=== PATIENT | female | born 1995 | race Caucasian/White ===

== ENCOUNTER 2019-11-23 12:08 | Emergency (ER) | payer BC, OTHER ==
[~2019-11-23 12:08] MED LIST: LITH300C PO
[2019-11-23] MEDS ORDERED: HYDR1TAB94 PO (13:53)
[2019-11-23] MEDS ORDERED: AMOCLA875 PO (13:53)
== END 2019-11-23 14:04 | disposition home or self-care (01) ==
LOC: ER 12:08
DX: S61.051A Open bite of right thumb without damage to nail, initial encounter (principal); Z87.891 Personal history of nicotine dependence; Z23 Encounter for immunization; W54.0XXA Bitten by dog, initial encounter
CPT/HCPCS: 12002; 73140; 90471; 90714; 99283-25; A9270-GY

== ENCOUNTER 2020-01-02 19:32 | Emergency (ER) | payer BC, OTHER ==
[~2020-01-02] VITALS: Ht 160 cm; Wt 59.0 kg
[~2020-01-02 19:32] MED LIST changes: +AMOCLA875 PO; +HYDR1TAB94 PO
[2020-01-02 20:35] LABS: Calcium, Ionized (POC) 1.17 mmol/L (1.10-1.46); Chloride (POC) 101 mmol/L (98-108); Creatinine (POC) 0.7 mg/dL (0.6-1.0); Glucose (ISTAT POC) 75 mg/dL (70-99); Hemoglobin (POC) 14.6 g/dL (12.0-16.0); Potassium (POC) 3.6 mmol/L (3.5-5.5); Sodium (POC) 139 mmol/L (135-148); Total CO2 (POC) 26 mmol/L (21-32)
== END 2020-01-02 22:28 | disposition home or self-care (01) ==
LOC: ER 19:32
PROVIDERS: Emergency Medicine
DX: M25.512 Pain in left shoulder (principal); R68.84 Jaw pain; R07.89 Other chest pain; F17.210 Nicotine dependence, cigarettes, uncomplicated; V89.2XXA Person injured in unspecified motor-vehicle accident, traffic, initial encounter; Y92.410 Unspecified street and highway as the place of occurrence of the external cause
CPT/HCPCS: 36415; 73030; 80047; 85014; 96372; 99283-25; J1885